=== PATIENT | male | born 1990 | race African-American/Black ===

== ENCOUNTER 2021-04-13 02:48 | Emergency (ER) | payer BC ==
[~2021-04-13] VITALS: Ht 175.3 cm; Wt 90.7 kg
[2021-04-13 03:19] VITALS: BP 122/74
[2021-04-13] MEDS ORDERED: IBUPROFEN 600 MG TAB PO ONE (04:40)
[2021-04-13] MEDS ORDERED: NAPR-54 PO (04:55)
--- NOTE | 2021-04-13 04:58 | NUR ---
Patient discharged with v/s stable. Written and verbal after care instructions given and explained. Patient alert, oriented and verbalized understanding of instructions. Wheel Chair Assisted with by EMT. All questions addressed prior to discharge. ID band removed. Patient advised to follow up with PMD. Rx of NAPROXEN given. Patient educated on indication of medication including possible reaction and side effects. Opportunity to ask questions provided and answered.
== END 2021-04-13 04:58 | disposition home or self-care (01) ==
LOC: MED 02:48
DX: S93.402A Sprain of unspecified ligament of left ankle, initial encounter (principal); Z79.899 Other long term (current) drug therapy; X50.1XXA Overexertion from prolonged static or awkward postures, initial encounter; Y93.67 Activity, basketball; Y92.89 Other specified places as the place of occurrence of the external cause; Y99.8 Other external cause status
CPT/HCPCS: 73610; 73630; 99284